=== PATIENT | female | born 1980 | race Caucasian/White ===

== ENCOUNTER 2020-03-29 20:49 | Emergency (ER) | payer SELFPAY ==
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
[2020-03-29] MEDS ORDERED: ACETAMINOPHEN 500 MG TABLET (FP) PO ONE (21:02)
[2020-03-29 21:10] VITALS: BP 120/86; PULSE 91; TEMP 98.7; BMI 27.3
[2020-03-29] MEDS ORDERED: ACETAMINOPHEN 325 MG TABLET (FP) ONE (21:17)
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
[2020-03-29 22:55] LABS: URINE APPEARANCE CLEAR; URINE BILIRUBIN NEGATIVE (NEGATIVE); URINE COLOR YELLOW; URINE GLUCOSE (UA) NEGATIVE (NEGATIVE); URINE KETONE NEGATIVE (NEGATIVE); URINE LEUK ESTERASE NEGATIVE (NEGATIVE); URINE NITRITE NEGATIVE (NEGATIVE); URINE PROTEIN NEGATIVE (NEGATIVE); URINE UROBILINOGEN 0.2 mg/dL (0.2-1.0)
[2020-03-29 22:57] LABS: HCG,QUALITATIVE URINE Negative
[2020-03-29] MEDS ORDERED: KETOROLAC TROMETHAMINE 30 MG/1 ML VIAL IVPUSH ONE (23:17)
== END 2020-03-30 02:10 | disposition home or self-care (01) ==
LOC: JER 20:49
PROC: 3E033NZ Introduction of Analgesics, Hypnotics, Sedatives into Peripheral Vein, Percutaneous Approach (ICD-10-PCS; principal; 2020-03-29)
DX: J38.3 Other diseases of vocal cords (principal); T74.11XA Adult physical abuse, confirmed, initial encounter; S32.009A Unspecified fracture of unspecified lumbar vertebra, initial encounter for closed fracture
CPT/HCPCS: 70450-TC; 70490-TC; 71046-TC-FY; 71111-TC-FY; 71250-TC; 72100-TC-FY; 81003; 84703; 99284-25; U0003

== ENCOUNTER 2023-01-14 18:54 | Emergency (ER) | payer OTHER ==
[2023-01-14 19:22] VITALS: BP 109/72; PULSE 66; RESP 18; TEMP 98.1; BMI 26.4
[2023-01-14 21:24] LABS: THROAT:GRP A STREP NOT DETECTED (NOTDETECTED)
== END 2023-01-14 22:09 | disposition home or self-care (01) ==
LOC: JER 18:54
DX: J01.90 Acute sinusitis, unspecified (principal); R09.81 Nasal congestion; R53.83 Other fatigue; Z20.822 Contact with and (suspected) exposure to COVID-19
CPT/HCPCS: 0241U-QW; 87651; 99283-25